=== PATIENT | female | born 1965 | race Caucasian/White ===

== ENCOUNTER 2021-09-18 08:52 | Outpatient (CLI) | payer BC, SELFPAY ==
--- NOTE | ~2021-09-18 | US_ITS ---
EXAMINATION: US right upper quadrant EXAM DATE: 09/18/2021 09:26 INDICATION: Right upper quadrant pain. TECHNIQUE: Multiple grayscale and Doppler images of the abdomen right upper quadrant were obtained (b y a technologist who performed the scan) and subsequently reviewed. Prior study from 2019 for compar ramila. FINDINGS: The pancreatic head and body are normal in appearance. The pancreatic tail is not visualized. There is echogenic liver parenchyma, hepatic steatosis. There is a 1 cm liver cyst. There is no evidence of intrahepatic biliary duct dilation. Portal venous flow was seen in the hepatopedal, normal direct ion and has normal Doppler waveform. No right-sided hydronephrosis. Common bile duct measures 4 mm, which is normal. The gallbladder wall is normal in thickness, with ex pected amount of distention. No sonographic evidence of pericholecystic fluid. There is no cholelit hiases. Technologist performing exam reports patient did not demonstrate sonographic Castillo's sign. Please note that this sign is less reliable in patients who have received pain medication. IMPRESSION: 1. Hepatic steatosis. 2. Sonographically unremarkable gallbladder. Reviewed, dictated and finalized at location A. THERAPIST
--- NOTE | ~2021-09-18 | US_ITS ---
EXAMINATION: US retroperitoneal comp EXAM DATE: 09/18/2021 09:27 INDICATION: RUQ Pain. TECHNIQUE: Multiple grayscale and Doppler images of the kidneys were obtained (by a technologist who performed the scan) and subsequently reviewed. There are no prior studies for comparison. FINDINGS: Right kidney: There is normal contour and echogenicity. It measures 12.8 x 4.7 x 4.9 centimeters. T here are no focal renal lesions identified. There is no hydronephrosis. Left kidney: There is normal contour and echogenicity. It measures 11.3 x 5.2 x 5.5 centimeters. Th ere are no focal renal lesions identified. There is no hydronephrosis. Bladder unremarkable. Prevoid bladder volume was 76 mL, postvoid only 2 mL. IMPRESSION: Sonographically unremarkable kidneys. Normal post void residual. Reviewed, dictated and finalized at location A. L CASINO FLOORPERSON
== END 2021-09-18 08:53 | disposition home or self-care (01) ==
LOC: CHSIMG 08:53
PROVIDERS: PCP Internal Medicine; Visit Provider Internal Medicine
DX: R10.11 Right upper quadrant pain (principal)
CPT/HCPCS: 76705; 76770

== ENCOUNTER 2022-07-07 11:55 | Outpatient (CLI) | payer BC, SELFPAY ==
--- NOTE | ~2022-07-07 | XR_ITS ---
EXAMINATION: XR hip LT min 2V DATE: 07/07/2022 12:15 INDICATION: Left hip pain TECHNIQUE: Anteroposterior and frog-leg lateral views of the left hip were obtained. COMPARISON: None. FINDINGS: Alignment is normal. No fracture or suspected avascular necrosis. Mild to moderate axial predominant nonuniform joint space narrowing at the left hip with prominent subarticular cystic changes at the cummings perior and superolateral aspect of the left acetabulum suggesting associated high-grade chondral marielle petar. Small marginal osteophytes about the left femoral head. Mild osteitis pubis and mild bilateral s acroiliac osteoarthritis.. Phlebolith in the left hemipelvis. Soft tissues are otherwise unremarkable . IMPRESSION: 1. Mild to moderate left hip osteoarthritis with prominent subarticular cystic changes suggesting hig h-grade chondromalacia along the acetabulum. Reviewed, dictated and finalized at location B. ACE CLEANER IMPRESSION: 1. Mild to moderate left hip osteoarthritis with prominent subarticular cystic changes suggesting high-grade chondromalacia along the acetabulum.
== END 2022-07-07 11:56 | disposition home or self-care (01) ==
LOC: CHSIMG 11:57
PROVIDERS: PCP Internal Medicine; Visit Provider Internal Medicine
DX: M25.552 Pain in left hip (principal)
CPT/HCPCS: 73502

== ENCOUNTER 2022-07-09 09:14 | Outpatient (CLI) | payer BC, SELFPAY | END 2022-07-09 09:15 | disposition home or self-care (01) | PROVIDERS: PCP Internal Medicine; Visit Provider Internal Medicine | DX: Z53.8 Procedure and treatment not carried out for other reasons (principal) | CPT/HCPCS: 99199 ==

== ENCOUNTER 2022-07-21 08:52 | Outpatient (CLI) | payer BC, SELFPAY ==
--- NOTE | ~2022-07-21 | MMUS_ITS ---
EXAMINATION: MM diagnostic vaishali BI w alesia, US breast LT limited HISTORY: Overdue follow-up for probably benign bilateral breast masses TECHNIQUE: Craniocaudal, mediolateral, and mediolateral oblique 3-D tomosynthesis images of the breas ts were performed and synthetic 2-D images were generated. CAD analysis was submitted and interpreted . High resolution limited left breast ultrasound was performed. COMPARISON: 08/21/2019, 08/11/2019 BREAST PARENCHYMAL COMPOSITION: The breasts are heterogeneously dense, which may obscure small masses . FINDINGS: MAMMOGRAPHIC FINDINGS: Left breast: There is an 11 mm oval, obscured, equal density mass in the middle third of the lower-ou ter breast at the 4:00 location 5 cm from the nipple without significant change. Right breast: Previously described right breast asymmetry is no longer evident. No mass, calcificatio n, or architectural distortion are identified. There has been no suspicious interval change. ULTRASOUND: Left breast: There is an 11 mm x 5 mm oval, circumscribed, parallel cystic lesion with internal septa tion at the 4:00 location 4 cm from the nipple with posterior acoustic enhancement and no internal va scularity which demonstrates slight increase in size since the comparison examination but otherwise n o suspicious interval change in the near three year interval since the comparison examination. IMPRESSION: 1. No mammographic or sonographic evidence of malignancy. 2. Recommend routine screening mammography in one year. BI-RADS Category 2: Benign finding(s). Reviewed, dictated and finalized at location F. RKER IMPRESSION: 1. No mammographic or sonographic evidence of malignancy. 2. Recommend routine screening mammography in one year. BI-RADS Category 2: Benign finding(s).
== END 2022-07-21 08:53 | disposition home or self-care (01) ==
LOC: CHSIMG 08:53
PROVIDERS: PCP Internal Medicine; Visit Provider Internal Medicine
DX: R92.8 Other abnormal and inconclusive findings on diagnostic imaging of breast (principal); N63.23 Unspecified lump in the left breast, lower outer quadrant
CPT/HCPCS: 76642; 77062; 77066; G0279

== ENCOUNTER 2023-03-15 09:35 | Outpatient (CLI) | payer BC, SELFPAY ==
--- NOTE | ~2023-03-15 | XR_ITS ---
EXAMINATION: XR chest 2V 03/15/2023 09:56 INDICATION: Dyspnea. Chest pain. PROCEDURE: 2 view chest COMPARISON: No prior studies for comparison. FINDINGS: The lungs are clear. The cardiomediastinal silhouette is within normal limits. There are no pleural effusions. There is no pneumothorax suspected. IMPRESSION: 1: NO ACUTE CARDIOPULMONARY DISEASE. Reviewed, dictated and finalized at location A.
[2023-03-15 09:48] LABS: Hematocrit 40.5 % (35.0-49.0); Hemoglobin 13.9 g/dL (12.0-15.0); Mean Corpuscular HGB Conc 34.3 g/dL (32.0-36.0); Mean Corpuscular Hemoglobin 30.7 pg (27.0-31.0); Mean Corpuscular Volume 89.4 fL (78.0-102.0); Mean Platelet Volume 12.1 fl (9.2-11.8); Platelet Count Result 252 K/mm3 (150-420); Red Blood Count 4.53 M/mm3 (4.20-5.40); Red Cell Distribution Width 12.7 % (11.6-14.4); White Blood Count 5.7 K/mm3 (4.8-10.8)
[2023-03-15 10:06] LABS: D Dimer 0.45 mg/L (0.19-0.50)
[2023-03-15 10:08] LABS: Band Neutrophils Percent 0 % (0-6); Basophils Percent Manual 0 % (0-1); Eosinophils Absolute Manual 0.74 K/mm3 (0.02-0.5); Eosinophils Percent Manual 13 % (1-6); Lymphocytes Absolute Manual 1.99 K/mm3 (1.1-4.5); Lymphocytes Percent Manual 35 % (18-44); Monocytes Absolute Manual 0.22 K/mm3 (0.1-0.90); Monocytes Percent Manual 4 % (3-9); Neutrophils Absolute Manual 2.73 K/mm3 (1.7-7.2); Neutrophils Percent Manual 48 % (46-73); Platelet Estimate Adequate (Adequate); Total Cells Counted 100
[2023-03-15 10:17] LABS: Alanine Aminotransferase 65 U/L (14-59); Albumin Level 3.9 g/dL (3.4-5.0); Alkaline Phosphatase 98 U/L (46-116); Anion Gap 10 mmol/L (8-16); Aspartate Amino Transferase 29 U/L (15-37); Bilirubin,Total 0.3 mg/dL (0.00-1.00); Blood Urea Nitrogen 8 mg/dL (7-18); Calcium 9.6 mg/dL (8.5-10.1); Carbon Dioxide 25 mmol/L (21-32); Chloride 107 mmol/L (98-108); Creatine Kinase 251 U/L (26-192); Estimated Glomerular Filt Rate > 60; Glucose 102 mg/dL (70-99); NT Pro B Type Natriuretic Pept 24 pg/mL (0-125); Osmolality Calculated 292 mOsm/kg (285-295); Potassium 4.1 mmol/L (3.5-5.1); Sodium 142 mmol/L (136-145); Total Protein 7.4 g/dL (6.4-8.2); Troponin I 5.5 ng/L (0.00-60.4)
== END 2023-03-15 09:36 | disposition home or self-care (01) ==
LOC: CHSLAB 09:37
PROVIDERS: PCP Internal Medicine; Visit Provider Internal Medicine
DX: R06.00 Dyspnea, unspecified (principal); R07.9 Chest pain, unspecified
CPT/HCPCS: 36415; 71046; 80053; 82550; 82553; 83880; 84484; 85025; 85380

== ENCOUNTER 2025-04-30 10:26 | Outpatient (CLI) | payer BC, SELFPAY ==
--- NOTE | ~2025-04-30 | XR_ITS ---
EXAMINATION:XR_CERV2-3V_CR DATE: 04/30/2025 10:43 INDICATION: Chronic neck pain TECHNIQUE: AP, lateral, lateral swimmers and odontoid views of the cervical spine are provided. COMPARISON: None FINDINGS: Straightening of the normal cervical lordosis. Odontoid is intact. Moderate atlantoaxial osteoarthritis. Vertebral body heights are normal. Mild disc height loss at C4-C5. Moderate disc height loss with degenerative endplate changes and small endplate osteophytes at C5-C6, C6-C7 and C7-T1. There is moderate to severe associated uncovertebral osteoarthritis at C5-C6 and C6-C7. There is also multilevel mild to moderate cervical facet osteoarthritis. Prevertebral soft tissues are normal. Mild biapical pleural-parenchymal scarring. IMPRESSION: 1. Moderate lower cervical spondylosis. Reviewed, dictated and finalized at location A.
--- OUTSIDE RECORDS SUMMARY | 2025-04-30 10:49 | XMS_ITS | Clinical Summary ---
Author Organization [facility] Address [facility] [place] [address] Care Team Providers Care Clinical Trials Manager Name Role Phone Jovan Quiroga MD Primary Care Provider + [phone] Allergies No known active allergies Medications No known medications Active Problems Problem Noted Date Diagnosed Date Esophageal dysphagia 06/03/2021 Assessment & Plan (06/03/2021 3:30 PM CDT): Differential for her dysphagia at this point is broad and includes esophageal stricture, esophageal dysmotility, and pharyngeal swallow dysfunction. The sensation that food is stuck in her chest would point towards an esophageal etiology, but the fact that the Heimlich maneuver was helpful in clearing her food bolus is more suggestive of a pharyngeal problem. An MBSS would be the most helpful next step in determining the etiology of her dysphagia. Manometry could also be considered if her MBS is unrevealing in order to rule out esophageal motility. Closed fracture of patella 05/21/2020 Other chest pain 03/11/2018 Disorder of rotator cuff 07/15/2016 Immunizations Immunization Administration Dates Next Due Influenza, Quadrivalent, Spl it, Preservative Free, Intramuscular 09/23/2019 Surgical History Surgery Date Site/Laterality Comments OTHER SURGICAL HISTORY 08/23/1999 - 08/22/2000 removal of cyst SECTION 08/23/1990 - 08/22/1991 Family History Medical History Relation Name Comments Breast cancer Maternal Grandmother Stomach cancer Paternal Grandmother Relation Name Status Comments Maternal Grandmother Paternal Grandmother Social History Tobacco Use Types Packs/Day Years Used Date Smoking Tobacco: Never Alcohol Use Standard Drinks/Week Comments Yes 0 (1 standard drink = 0.6 oz pur e alcohol) socially Personal Safety Answer Date Recorded Getting School Help Needed Not on file 11/05 Comments Unknown Sex and Gender Information Value Date Recorded Sex Assigned at Not on file Legal Sex Female 8:58 AM [employer] Gender Identity Not on file Sexual Orientation Not on file Obstetrics History Last Filed Vital Signs Vital Sign Reading Time Taken Comments Blood Pressure 148/90 06/03/2021 2:08 PM CDT Pulse 69 06/03/2021 2:08 PM CDT Temperature - - Respiratory Rate - - Oxygen Saturation - - Inhaled Oxygen Concentration - - Weight 96.4 kg (212 lb 9.6 oz) 06/03/2021 2:08 P M CDT Height 177.8 cm (5' 10) 06/03/2021 2:08 PM CDT Body Mass Index 30.5 06/03/2021 2:08 PM CDT Plan of Treatment Not on file Insurance [employer] [place] [employer] [facility] Care Teams Clinical Trials Manager Relationship Specialty Start Date End Date Jovan Quiroga MD [address] [place] [address] PCP - General Internal Medicine 09/05/19
--- OUTSIDE RECORDS SUMMARY | 2025-04-30 10:49 | XMS_ITS | Clinical Summary ---
Author Organization [email or web address] Address [address] [place] [address] Care Team Providers Care Data Warehousing Specialist Name Role Phone Jovan Quiroga MD Primary Care Provider [phone] Cali Howard MD Unavailable [phone] Source Comments [email or web address],non-owned Affiliates and Associated Physician Practices is amultiple site organization consisting of ambulatory clinics and hospital sitesin [place], [place], [place] and [place]. This disclosure is being madepursuant to the Care Everywhere program and may not contain all information available regarding this patient. Last updated 18.[email or web address] Allergies No known active allergies Medications * Be aware that medications may not be up to date on this document. Alwaysverify current medications with the patient. Venlafaxine HCl (venlafaxine ER 24hr) 150 MG tablet Take 75 mg by mouth daily with dinner Active LORazepam (Ativan) 1 MG tablet Take 1 (one) tablet by mouth as needed for Anxiety 3 Active amLODIPine (Norvasc) 2.5 MG tablet Take 1 (one) tablet by mouth at bedtime Active acetaminophen (Tylenol) 500 MG capsule Take 2 (two) capsules by mouth 3 times daily Take for ten days then as needed. 4 Active oxyCODONE, immediate release, (Roxicodone) 10 MG tabletIndicatio ns:Postoperativ e pain Take 0.5 (one-half) tablet to 1 (one) tablet by mouth every 4 hours as needed for Pain 30 tablet 05/20/2024 11:12 AM CDT 4 Active omeprazole (PriLOSEC) 20 MG capsule Take 1 (one) capsule by mouth daily before breakfast for 21 days 21 capsule 4 Active metoprolol succinate XL 24hr (Toprol XL) 50 MG tablet Take 1 (one) tablet by mouth once daily 4 Active rosuvastatin (Crestor) 10 MG tablet Take 1 (one) tablet by mouth at bedtime 4 Active estradiol-noret hindrone (Activella) 0.5-0.1 MG tablet Take 1 (one) tablet by mouth once daily 30 tablet 5 5 Active nebivolol (Bystolic) 5 MG tablet Take 1 (one) tablet by mouth once daily Active Active Problems Problem Noted Date Diagnosed Date Fatigue 05/10/2024 Hip arthritis 07/30/2023 Palpitations 05/17/2023 Sleep apnea 04/19/2023 Essential (primary) hypertension 03/24/2023 Hyperlipidemia 03/24/2023 Esophageal dysphagia 06/03/2021 10/07/2023 Overview (10/07/2023): Last Assessment & Plan: Differential for her dysphagia at this point [...] in order to rule out esophageal motility. Inflamed epidermoid cyst of skin 02/20/2021 Assessment & Plan (02/20/2021 3:46 PM CDT): - Diagnosis, etiology, treatment options reviewed - Patient elects to proceed with IL-kenalog treatment today - 0.8cc of ILK-20mg/cc injected to inflamed cyst (see procedure note) Other chest pain 03/11/2018 Encounters Date Type Department Care Team Description 04/25/2025 2:15 PM CDT Office Visit [facility] [address], [address] [place] [phone] Delmy Cherry PA Closed fracture of distal end of right radius with routine healing, unspecified fracture morphology, subsequent encounter (Primary Dx) 04/25/2025 2:00 PM CDT Ancillary Procedure [facility] - Radiology [address] [place] [phone] Delmy Cherry PA Other closed fracture of distal end of right radius, initial encounter 04/11/2025 1:10 PM CDT Office Visit [facility] [address], [address] [place] [phone] Seng Loera MD Other closed fracture of distal end of right radius, initial encounter (Primary Dx) 03/27/2025 Telephone [facility] - Centralized Scheduling [address] [place] [phone] Kayley Tinajero DO Reschedule Appointment from Last 3 Months Family History Medical History Relation Name Comments None Known Brother CVA Father None Known Maternal Aunt None Known Maternal Grandfather Cancer - Breast Maternal Grandmother None Known Maternal Uncle Leukemia Mother None Known Other None Known Paternal Aunt None Known Paternal Grandfather None Known Paternal Grandmother None Known Paternal Uncle None Known Sister Asthma Neg Hx Cancer - Other Neg Hx Cancer - Skin, Melanoma Neg Hx Cancer - Skin, Non Melanoma Neg Hx Eczema Neg Hx Hemophilia Neg Hx Psoriasis Neg Hx Relation Name Status Comments Brother Father Maternal Aunt Maternal Grandfather Maternal Grandmother Maternal Uncle Mother Other Paternal Aunt Paternal Grandfather Paternal Grandmother Paternal Uncle Sister Social History Tobacco Use Types Packs/Day Years Used Date Smoking Tobacco: Never Smokeless Tobacco: Never Tobacco Cessation:Counseling Given: Not Answered Alcohol Use Standard Drinks/Week Comments Yes 0 (1 standard drink = 0.6 oz pur e alcohol) AUDIT-C Answer Date Recorded Q1: How often do you have a drink containing alcohol? Monthly or less 07/30/2023 Q2: How many drinks containi ng alcohol do you have on a typical day when you are drinking? Patient does not drink 12/08/202 3 Q3: How often do you have si x or more drinks on one occasion? Never 07/30/2023 PHQ-2 Answer Date Recorded Patient Health Questionnaire-2 Score 1 06/05/2024 Comments No Sex and Gender Information Value Date Recorded Sex Assigned at Female 12/07/2023 3:56 PM CDT Legal Sex Female 4:22 PM CDT Gender Identity Not on file Sexual Orientation Not on file Last Filed Vital Signs Vital Sign Reading Time Taken Comments Blood Pressure 122/78 08/31/2024 1:16 PM UNCLAIMED PROPERTY OFFICER Pulse 70 05/20/2024 7:29 AM CDT Temperature 36.8 C (98.2 F) 05/20/2024 7:29 AM CDT Respiratory Rate 17 05/20/2024 7:29 AM CDT Oxygen Saturation 100% 05/20/2024 7:29 AM CDT Inhaled Oxygen Concentration - - Weight 110.2 kg (243 lb) 08/31/2024 2:15 PM UNCLAIMED PROPERTY OFFICER Height 177.8 cm (5' 10) 08/31/2024 2:15 PM UNCLAIMED PROPERTY OFFICER Body Mass Index 34.87 08/31/2024 2:15 PM UNCLAIMED PROPERTY OFFICER Plan of Treatment Upcoming Encounters Date Type Department Care Team (Late st Contact Info) Description 05/09/2025 11:15 AM CDT Office Visit [facility] [address] [place] [phone] [place] [address] [address] 06/11/2025 11:10 AM CDT Office Visit [facility] [address] [place] [phone] [place] [address] [address] 06/13/2025 10:30 AM CDT Office Visit [facility] - General Dermatology [address], [address] [place] [address] Kayley Tinajero DO [address] [place] [phone] Health Maintenance Due Date Last Done Comments COLOGUARD (AGES 45-75) - COL ON CA SCREENING 1964 COLON MONITORING 1964 COLONOSCOPY - COLON CA SCREENING 1964 CT COLONOGRAPHY - COLON CA SCREENING 1964 Colorectal Cancer Screening 1964 FIT - COLON CA SCREENING 1964 FLEX SIG - COLON CA SCREENING 1964 HIV SCREENING 12/21/1979 HEPATITIS C SCREENING 12/16/1982 DTAP/TDAP/TD VACCINES (1 - Tdap) 12/21/1983 PNEUMOCOCCAL VACCINE 50+ (1 of 1 - PCV) 2014 ZOSTER VACCINE (1 of 2) 2014 SCREENING FOR DIABETES 05/27/2023 8, 03/11/2018 DEPRESSION SCREENING 08/23/2024 04/17/2024, 06/22/2023 Respiratory Syncytial Virus (RSV) Vaccine Pt: or over 60 yrs (1 - Risk 60-74 years 1-dose series) 2024 COVID-19 VACCINE (1 - 2023-2 5 season) 2025 INFLUENZA VACCINE (#1) 2025 09/23/2019 MAMMOGRAM 08/31/2026 08/31/2024 PAP with HPV 08/31/2029 08/31/2024 HEPATITIS B VACCINE Aged Out No longe r eligible based on patient's age to complete this topic HIB VACCINE Aged Out No longer eligi ble based on patient's age to complete this topic HPV VACCINE Aged Out No longer eligi ble based on patient's age to complete this topic MENINGOCOCCAL (Group B) VACCINE SHARED DECISION-MAKING Aged Out No longer eligible based on patient's age to complete this topic MENINGOCOCCAL GROUPS A/C/Y/W VACCINE Aged Out No longer eligible b ased on patient's age to complete this topic Medical Devices Implanted Type Area Satellite Television Installer Device Identifier Shelf Expiration Date Model / Serial / Lot Screw 6.5mm 30mm Sphrcl Head Hip Actb Implanted:Qty: 1 on 07/30/2023 by Milton Figueredo IV, MD at [facility] Left: Hip [employer] 03/23/2033 [id number] / / [id number] Liner Actb R3 +4mm 50mm 36mm Xlpe Hip Implanted:Qty: 1 on 07/30/2023 by Milton Figueredo IV, MD at [facility] Left: Hip [employer] 09/21/2032 [id number] / / [id number] Shell Actb 50mm Hip 3 Hl R3 Implanted:Qty: 1 on 07/30/2023 by Milton Figueredo IV, MD at [facility] Left: Hip [employer] 05/13/2033 [id number] / / [id number] Stem Fem 143mm Hip 126d 4 08/05 Lat Ofst Implanted:Qty: 1 on 07/30/2023 by Milton Figueredo IV, MD at [facility] Left: Hip [employer] 11/12/2029 [id number] / / [id number] Head Fem +0mm 08/05 Tpr 36mm Hip Oxnm Implanted:Qty: 1 on 07/30/2023 by Milton Figueredo IV, MD at [facility] Left: Hip [employer] 04/17/2033 [id number] / / [id number] Hd Fem Oxidized 08/05 Tapr +12 36mm - [id number] Implanted:Qty: 1 on 05/19/2024 by Milton Figueredo IV, MD at [facility] Left: Hip [employer] [id number] / [id number] / [id number] Shell Actb 54mm Hip Mlhl Clr Cd [place] Implanted:Qty: 1 on 05/19/2024 by Milton Figueredo IV, MD at [facility] Left: Hip [employer] 01/18/2034 [id number] / / [id number] Screw 6.5mm 35mm Hip Slf-Tap Bone Implanted:Qty: 1 on 05/19/2024 by Milton Figueredo IV, MD at [facility] Left: Hip [employer] 02/28/2034 [id number] / / [id number] Acetabular System Longevity Highly Crosslinked Polyethylene Liner +5mm Offset 36mm I.D. Size F Implanted:Qty: 1 on 05/19/2024 by Milton Figueredo IV, MD at [facility] Left: Hip 10/06/2028 [id number] / / [id number] Explanted Type Area Satellite Television Installer Device Identifier Shelf Expiration Date Model / Serial / Lot Pin Hlf 255mm 5mm Jtx Lng Orth Ss 45mm Explanted:Qty: 1 on 07/30/[address] [facility] [employer] [id number] / / Procedures Procedure Name Priority Date/Time Associated Diagnosis Comments XR WRIST RIGHT 3VW OR MORE Routine 04/25/2025 2:03 PM CDT Other closed fracture of distal end of right radius, initial encounter MAMMO BILAT SCREENING W FARZAD Routine 08/31/2024 2:29 PM UNCLAIMED PROPERTY OFFICER Well woman exam with routine gynecological exam PAP IG LB +HPV APTIMA REFLEX 16,18/45 Routine 08/31/2024 1:29 PM UNCLAIMED PROPERTY OFFICER Well woman exam with routine gynecological exam Special screening examination for human papillomavirus (HPV) BASIC METABOLIC PANEL (CALCIUM TOTAL) AM Draw 03/12/2018 2:07 AM CDT from Last 3 Months or Most Recently Relevant to Health Maintenance Results * XR Wrist Right 3Vw or More (04/25/2025 2:03 PM CDT) Narrative [facility] [address] - 04/25/2025 2:03 PM CDT Please see progress note in Epic for results. us Delmy JURADO DIAGNOSTIC IMAGING ORDERABLES Final Result [facility] [place] [address] * Mammo Bilat Screening W Farzad (08/31/2024 2:29 PM UNCLAIMED PROPERTY OFFICER) Anatomical Region Laterality Modality Breast Bilateral Mammography 09/06/2024 11:1 3 AM UNCLAIMED PROPERTY OFFICER Impressions 09/06/2024 11:19 AM UNCLAIMED PROPERTY OFFICER IMPRESSION: Annual screening mammography is recommended. OVERALL FINAL ASSESSMENT: BI-RADS Category 1: Negative. > Interpreting Provider: Ventura Maldonado MD on 09/06/2024 11:19 AM Narrative 09/06/2024 11:19 AM UNCLAIMED PROPERTY OFFICER EXAMINATION: BILATERAL DIGITAL SCREENING MAMMOGRAM AND BILATERAL BREAST TOMOSYNTHESIS HISTORY: Screening. COMPARISON: Serial examinations dating back to August 11, 2019. TECHNIQUE: BILATERAL digital breast tomosynthesis (DBT) and synthetic 2D digital mammogram images were obtained (bilateral craniocaudal and mediolateral oblique projections) including computer aided detection (CAD.) BREAST PARENCHYMAL COMPOSITION:Category C: The breasts are heterogeneously dense which may obscure small masses. MAMMOGRAM FINDINGS: There is no suspicious finding in either breast. us Cali Howard MD MAMMO ORDERABLES Final Resu lt * PAP IG LB +HPV APTIMA REFLEX 16,18/45 (08/31/2024 1:29 PM UNCLAIMED PROPERTY OFFICER) Diagnosis Comment [facility] ACCOUNT BILL Comment: NEGATIVE FOR INTRAEPITHELIAL LESION OR MALIGNANCY. CELLULAR CHANGES ASSOCIATED WITH ATROPHY ARE PRESENT. THIS SPECIMEN WAS RESCREENED PART OF OUR VIDEO NEWS EDITOR PROGRAM. Specimen Adequacy Comment [facility] ACCOUNT BILL Comment: Satisfactory for evaluation. Endocervical component may not be distinguished in cases of atrophy. Clinician Provided ICD10 Comment [facility] ACCOUNT BILL Comment: Z01.419 Z11.51 Performed by Comment [facility] ACCOUNT BILL Comment:Garry Hoffman, Cyt otechnologist (ASCP) QC Reviewed by Comment [facility] ACCOUNT BILL Comment:Carmen Conway, Cyto technologist Comment . [facility] ACCOUNT BILL Note Comment [facility] ACCOUNT BILL Comment: The Pap smear is a screening test designed to aid in the detection of premalignant and malignant conditions of the uterine cervix. It is not a diagnostic procedure and should not be used as the sole means of detecting cervical cancer. Both false-positive and false-negative reports do occur. IGLBP CPT Code Automation Comment [facility] ACCOUNT BILL Comment: This liquid based ThinPrep(R) pap test was screened with the use of an image guided system. Human papillomavirus Aptima Negative Negative [facility] ACCOUNT BILL Comment: This nucleic acid amplification test detects fourteen high-risk HPV types (16,18,31,33,35,39,45,51,52,56,58,59,66,68) without differentiation. HPV Genotype Reflexed Comment [facility] ACCOUNT BILL Comment:Criteria not met, HP V Genotype not performed. PART OF UTERINE CERVIX / Unknown 08/31/2024 1:29 PM UNCLAIMED PROPERTY OFFICER 08/31/2024 Comment:Cervix Release to rajesh Bunch [facility] ACCOUNT BILL - 09/06/2024 9:10 AM UNCLAIMED PROPERTY OFFICER Performed at: - [facility] [address] [id number] Silk Screen Printer: Vera Barillas MD, Phone: [phone] Performed at: - [facility] [address] [id number] Silk Screen Printer: Vera Barillas MD, Phone: [phone] Specimen Comment: [id number] Specimen Comment: Source.............Cervix;Endocervix Specimen Comment: No. of containers..01 ThinPrep Vial Cali Howard MD LAB - PATHOLOGY/CYTOLOGY OR DERABLES Final Result [facility] ACCOUNT BILL [address] [place] [address] * (ABNORMAL) BASIC METABOLIC PANEL (CALCIUM TOTAL) (03/12/2018 2:07 AM CDT) Glucose 96 74 - 106 mg/dL 03/12/2018 2:30 AM CDT [facility] Sodium 139 136 - 145 mmol/L 03/12/2018 2:30 AM CDT [facility] Potassium 3.7 3.5 - 5.1 mmol/L 03/12/2018 2:30 AM CDT [facility] Chloride 106 98 - 107 mmol/L 03/12/2018 2:30 AM CDT [facility] CO2 26 22 - 31 mmol/L 03/12/2018 2:30 AM CDT [facility] Calcium 9.6 8.5 - 10.1 mg/dL 03/12/2018 2:30 AM CDT [facility] Anion Gap 7(L) 8 - 16 mmol/L 03/12/2018 2:30 AM CDT [facility] BUN 9 7 - 21 mg/dL 03/12/2018 2:30 AM CDT [facility] Creatinine 0.66 0.50 - 1.30 mg/dL 03/12/2018 2:30 AM CDT [facility] eGFR by MDRD >60 >60 mL/min/1.7 3m2 03/12/2018 2:30 AM CDT [facility] eGFR by MDRD >60 >60 mL/min/1.7 3m2 03/12/2018 2:30 AM CDT [facility] Blood BLOOD SPECIMEN / Unknown Venipuncture / Unknown 03/12/2018 2:07 AM CDT 03/12/2018 2:11 AM CDT us Charles Mercado DO LAB - CHEMISTRY ORDERABLES F inal Result [facility] [address] [place] [address] from Last 3 Months or Most Recently Relevant to Health Maintenance Insurance ANTHEM ANTHEM Advance Directives * Full Code (Latest Code Status on File) Date Activated Date Inactivated Comments 05/19/2024 3:01 PM 05/20/2024 3:41 PM * Full Code Date Activated Date Inactivated Comments 07/30/2023 9:35 AM 07/31/2023 2:32 PM * Full Code Date Activated Date Inactivated Comments 03/11/2018 10:40 PM 03/12/2018 2:02 PM Care Teams Data Warehousing Specialist Relationship Specialty Start Date End Date Jovan Quiroga MD [address] [place] [phone] PCP - General Internal Medicine 03/16/23 [place] [id number] [address] Obstetrics and Gynecology 08/31/24
== END 2025-04-30 10:27 | disposition home or self-care (01) ==
LOC: CHSIMG 10:28
PROVIDERS: PCP Internal Medicine; Visit Provider Internal Medicine
DX: M54.2 Cervicalgia (principal); M47.892 Other spondylosis, cervical region
CPT/HCPCS: 72040